=== PATIENT | male | born 1960 | race Caucasian/White ===

== ENCOUNTER → 2020-01-21 | Outpatient (CLI) | payer OTHER ==
--- NOTE | 2020-01-21 16:55 | XR ---
EXAMINATION TYPE: XR hand complete bilateral DATE OF EXAM: 01/21/2020 COMPARISON: None HISTORY: Bilateral hand pain TECHNIQUE: Bilateral hands are examined in 3 projections each. FINDINGS: There is some minimal soft tissue swelling over the distal dorsal metacarpals of the left hand. Bilateral hand joint spaces appear preserved. No acute fractures or dislocations are evident. No susp icious radiopaque foreign bodies are evident. IMPRESSION: 1. There may be some mild soft tissue swelling over the dorsum of the distal metacarpal phalangeal j oint spaces of the left hand. 2. Bilateral hands are otherwise unremarkable.
== END | disposition home or self-care (01) ==
LOC: RADXRMAIN 15:26
PROVIDERS: ATTEND Internal Medicine
DX: M19.042 Primary osteoarthritis, left hand (principal); M19.041 Primary osteoarthritis, right hand; M79.642 Pain in left hand; M79.641 Pain in right hand